=== PATIENT | male | born 1995 | race Two or more races ===

== ENCOUNTER 2017-09-05 22:48 | Emergency (ER) | payer SELFPAY ==
--- NOTE | 2017-09-06 02:01 | ED ---
Lower Extremity - HPI Summary HPI Summary: Patient here with right knee pain after a basketball accident earlier tonight. He reports he was [place] the hoop when someone in front of him obstructed his path fell off balance twisting his knee. He reports pain with movement and weightbearing. Denies numbness tingling or weakness. He sick and ibuprofen prior to arrival however has not applied any ice. He was playing at [employer] and so first aid there applied an immobilizer to his lower extremity and kept him nonweightbearing to be seen here. No previous injuries to this knee. - History of Current Complaint Chief Complaint: EDExtremityLower Stated Complaint: RT KNEE INJURY Time Seen by Provider: 09/06/17 01:39 Hx Obtained From: Patient Pain Intensity: 6 - Allergies/Home Medications Allergies/Adverse Reactions: Allergies Allergy/AdvReac Type Severity Reaction Status Date / Time No Known Allergies Allergy Verified 09/05/17 22:54 PMH/Surg Hx/FS Hx/Imm Hx Previously Healthy: Yes Endocrine/Hematology History: Denies: Hx Anticoagulant Therapy, Hx Blood Disorders Infectious Disease History: No Infectious Disease History: Denies: Traveled Outside the [place] in Last 30 Days - Family History Known Family History: Positive: None - Social History Occupation: Student Lives: Dormitory/Roommates Alcohol Use: None Hx Substance Use: No Substance Use Type: Reports: None Hx Tobacco Use: No Smoking Status (MU): Never Smoked Tobacco Review of Systems Constitutional: Negative Positive: Arthralgia, Decreased ROM Skin: Negative Neurological: Negative Psychological: Normal All Other Systems Reviewed And Are Negative: Yes Physical Exam Triage Information Reviewed: Yes Vital Signs On Initial Exam: Initial Vitals Temp Pulse Resp BP Pulse Ox 98.6 F 85 18 138/71 97 09/05/17 22:52 09/05/17 22:52 09/05/17 22:52 09/05/17 22:52 09/05/17 22:52 Vital Signs Reviewed: Yes Appearance: Positive: Well-Appearing, No Pain Distress, Well-Nourished Skin: Positive: Warm, Skin Color Reflects Adequate Perfusion, Dry - No erythema , no ecchymosis, no skin breakdown over affected area Head/Face: Positive: Normal Head/Face Inspection Eyes: Positive: EOMI ENT: Positive: Hearing grossly normal Respiratory/Lung Sounds: Positive: Breath Sounds Present Cardiovascular: Positive: Pulses are Symmetrical in both Upper and Lower Extremities. Negative: Leg Edema Left, Leg Edema Right Musculoskeletal: Positive: Strength/ROM Intact, Pain @ - Medial joint lines are tender to palpation; patient reports pain with modified Abad's however no laxity is appreciated; negative Blaine; moderate pain with varus and valgus stress however no laxity; patella nontender to palpation and no edema about this area; popliteal spaces without edema and nontender to palpation Neurological: Positive: Normal, Sensory/Motor Intact, Alert, Oriented to Person Place, Time, CN Intact II-III Psychiatric: Positive: Normal Diagnostics - Vital Signs Vital Signs Temp Pulse Resp BP Pulse Ox 09/06/17 01:28 98.5 F 86 19 122/62 99 09/05/17 22:52 98.6 F 85 18 138/71 97 - Laboratory Lab Statement: Any lab studies that have been ordered have been reviewed, and results considered in the medical decision making process. Lower Extremity Course/Dx - Course Course Of Treatment: Right knee x-ray (wet read): No acute fracture or dislocation, no effusion. There is a small particle of bone distal to the patella that appears to be within the patellar tendon. Discussed previous injuries to this knee again with patient as well as growth issues such as knee pain during growth spurts etc. Patient denies any such issues and denies landing on his knee tonight. Suspect this is a chronic finding and not an avulsion fx however discussed with patient that the radiologist will reread this image in the morning a provider will contact him if something more impressive has taken place. In the meantime will diagnose with a sprain, apply knee immobilizer and provided crutches. Patient may RICE, take NSAID's w/ food and follow-up with [facility] in 1-2 weeks. Call tomorrow to schedule an appointment. If sx persist or worsen or a more serious pathology is identified by radilogy, pt may be referred to orthopedics (contact info provided in such case). Danger signs and symptoms of when to return to the emergency Department reviewed. Patient agrees with plan. - Diagnoses Provider Diagnoses: Right knee sprain Discharge - Discharge Plan Condition: Stable Disposition: HOME Patient Education Materials: Knee Sprain (ED), Crutch Instructions (ED), Knee Immobilizer (ED) Forms: *School Release Referrals: [facility] - Ezio [facility]THINGTON [Primary Care Provider] - Additional Instructions: Rest, ice, elevate, keep immobilizer in place and use crutches until advised otherwise by [facility] provider. He may take ibuprofen with food for pain Contact [facility] to schedule an appointment for the end of the week or early next week for recheck. If your findings tonight on x-ray or different per radiologist tomorrow morning , you receive a phone call. If these are impressive for more significant pathology, you may be requested to follow up with cardiac rehabilitation specialist. Contact information included here however do not call unless advised to do so. *If you develop numbness, tingling, weakness, skin changes associated with lack of blood flow, return to the emergency department
[2017-09-06 02:14] VITALS: BP 122/64
--- NOTE | 2017-09-06 08:05 | RAD ---
INDICATION: Right knee pain after basketball injury COMPARISON: None TECHNIQUE: 4 view radiograph of the right knee. FINDINGS: Adjacent to the inferior pole of the patella is a 7 mm calcification with well-circumscribed rounded borders. The visualized bones are otherwise well-corticated and properly aligned. The joint spaces are properly maintained. There is no radiographic evidence of joint effusion. There is no acute fracture, dislocation or other focal bony abnormality. IMPRESSION: Adjacent to the inferior margin of the patella is a well-circumscribed 7 mm bony focus within the substance of the infrapatellar tendon. This is more likely a bony ossicle as opposed to an acute avulsion injury in this otherwise normal knee radiograph. I concur with Physician Assistant Cooley's fine interpretation. If the patient's symptoms persist, follow-up imaging is recommended.
== END 2017-09-06 02:13 | disposition home or self-care (01) ==
LOC: ED 22:48
DX: S83.91XA Sprain of unspecified site of right knee, initial encounter (principal); W18.30XA Fall on same level, unspecified, initial encounter; Y93.67 Activity, basketball; Y92.310 Basketball court as the place of occurrence of the external cause
CPT/HCPCS: 99282